=== PATIENT | female | born 1990 | race Caucasian/White ===

== ENCOUNTER 2016-08-29 18:05 | Emergency (ER) | payer SELFPAY ==
[2016-08-29] MEDS ORDERED: ONDANSETRON HCL IV 4 MG/2 ML VIAL IVP ONE (18:47)
[2016-08-29] MEDS ORDERED: MORPHINE SULFATE 5 MG/ML PFS IVP ONE ×2 (18:47→19:16)
--- NOTE | 2016-08-29 18:51 | Emergency Department Record ---
History of Present Illness - General Chief complaint: Extremity Problem Stated complaint: R THUMB INJURY Time Seen by Provider: 08/29/16 18:33 Source: Patient Mode of Arrival: Ambulatory Limitations: No limitations - History of Present Illness Initial comments: The patient is here due to injuring her R hand about an hour ago. She went to hit a tether ball and it jammed her thumb causing severe pain. She did not fall or injure herself otherwise. Complaint: Extremity pain Onset/Timin -: Minutes(s) Location: Right, Other History of Same: No Radiation: Distal Severity scale (1-10): 10 Quality: Aching Consistency: Constant Improves with: Nothing Worsens with: Nothing Associated Symptoms: Denies other symptoms - Related Data Previous Rx's Medication Instructions Recorded Hydrocodone/Acetaminophen [[place] 1 - 2 each PO .EVERY 4-6 HRS PRN 08/29/16 5-325 Tablet] #20 tablet Allergies Allergy/AdvReac Type Severity Reaction Status Date / Time No Known Drug Allergies Allergy Verified 08/29/16 18:30 Travel Screening - Travel/Exposure Within Last 30 Days Have you traveled within the last 30 days?: No Review of Systems Constitutional: Denies: Chills, Fever Eyes: Denies: Eye discharge ENT: Denies: Congestion Respiratory: Denies: Cough, Dyspnea Past Medical History - SOCIAL HISTORY Smoking Status: Never smoker Alcohol Use: None Drug Use: None - RESPIRATORY Hx Respiratory Disorders: No - CARDIOVASCULAR Hx Cardio Disorders: No - NEURO Hx Neuro Disorders: No - GI Hx GI Disorders: No - Hx Genitourinary Disorders: No - ENDOCRINE Hx Endocrine Disorders: No - MUSCULOSKELETAL Hx Musculoskeletal Disorders: No - PSYCH Hx Psych Problems: No - HEMATOLOGY/ONCOLOGY Hx Hematology/Oncology Disorders: No Family Medical History Any Significant Family History?: No Physical Exam - General General Appearance: Alert, Oriented x3, Cooperative, Mild distress - Extremities Extremities exam: Normal capillary refill, Tenderness. negative: Normal inspection (There is an abvious deformity of the R 1st MCP joint.), Full ROM ( There is decreased ROM of the R thumb due to pain.) - Neurological Neurological exam: Normal gait. negative: Abnormal gait Course Vital Signs 08/29/16 18:27 Temperature 98.1 F Pulse Rate 84 Respiratory 20 Rate Blood Pressure 142/104 Pulse Ox 98 - Reevaluation(s) Reevaluation #1: Procedure note: The R thumb MCP area was anesth. with 3 cc's of a 50:50 combination [place] 1% with Sensoricaine .25%. The injected areas next to the MCP joint were aspirated first prior to injection. Good anesth was obtained. The proximal phalynx dislocation was reduced with minimal difficulty. The 1st MCP ROM was normal after with mild pain. Post reduction xrays also demonstrated a successful reduction. 08/29/16 19:31 08/29/16 19:55 Reevaluation #2: I did check the post reduction xrays and they appear to show a successful reduction. She does now have improved ROM of the R thumb with mild pain. We will place the patient in a thumb spica splint and have her ice and elevate the hand for the next 2 days. She is to see her PCP in 3-5 days for recheck and will receive [place] for pain. 08/29/16 19:50 08/29/16 21:34 Medical Decision Making - Data Complexity MDM Data: X-Ray Ordered and/or Reviewed - Radiology Data Radiology results: Report reviewed (R hand: 1st MCP dislocation.) Disposition Disposition: Discharge Clinical Impression: Closed dislocation of thumb Qualifiers: Encounter type: initial encounter Laterality: right Qualified Code(s): S63.104A - Unspecified dislocation of right thumb, initial encounter Disposition: Home, Self-Care Condition: (1) Good Instructions: Finger Dislocation (ED) Additional Instructions: Please ice and elevate the R hand for 2-3 days and have your hand rechecked by your PCP later this week. Take Motrin or [place] for pain. Return to the ER for any increased pain, swelling, redness or fever. Prescriptions: Hydrocodone/Acetaminophen [[place] 5-325 Tablet] 1 - 2 each PO .EVERY 4-6 HRS PRN #20 tablet PRN Reason: Pain Forms: Patient Portal Access Time of Disposition: 19:53
--- NOTE | 2016-08-29 23:04 | RADIOLOGY REPORT ---
EXAM: HAND, RIGHT 3 VIEWS HISTORY: INJURY. TECHNIQUE: Three views of the right hand were performed. FINDINGS: There is dislocation of the first proximal phalanx. No evidence of fracture. The remainder of the osseous structures are intact. IMPRESSION: DISLOCATION OF THE FIRST PROXIMAL PHALANX. JOB NUMBER: [id number] MTDD
--- NOTE | 2016-08-29 23:07 | RADIOLOGY REPORT ---
EXAM: HAND, RIGHT 3 VIEWS HISTORY: INJURY. TECHNIQUE: Three views of the right hand were performed. FINDINGS: No evidence of fracture or dislocation. No lytic or blastic lesion. IMPRESSION: NEGATIVE RIGHT HAND EXAMINATION. JOB NUMBER: [id number] MTDD
== END 2016-08-29 20:09 | disposition home or self-care (01) ==
LOC: ER 18:05
DX: S63.114A Dislocation of metacarpophalangeal joint of right thumb, initial encounter (principal); W23.0XXA Caught, crushed, jammed, or pinched between moving objects, initial encounter; Y93.59 Activity, other involving other sports and athletics played individually
CPT/HCPCS: 26700 ×2; 99283 ×2; 96374; 96375; 73130; J2405; J2270